=== PATIENT | male | born 1935 | race Caucasian/White ===

== ENCOUNTER 2016-07-12 13:56 | Emergency (ER) | payer MEDICARE ==
[~2016-07-12] VITALS: Ht 188 cm; Wt 100.0 kg
[~2016-07-12 13:56] MED LIST: ASCO500T8 PO; ASPI-496 PO; ATOR20TA PO; CALC-118 PO; CHOL2000 PO; DUTA0.5C PO; GLUC1TAB55 PO; IBUP200C PO; LACT1CAP43 PO; LEVE750T37 PO; MAGN300C PO; MULT-717 PO; OMEG1CAP57 PO; RABE20TA5 PO; RESV100C PO; TAMS-11 PO; UBID100C24 PO
[2016-07-12] MEDS ORDERED: SODIUM CHLORIDE 0.9% 1,000ML IVBOLUS ONE (15:30)
[2016-07-12] MEDS ORDERED: SODIUM CHLORIDE FLUSH 10ML SYR IVF ONE (15:30)
[2016-07-12 15:33] LABS: RAPID INFLUENZA A Negative (Negative); RAPID INFLUENZA B Negative (Negative)
[2016-07-12 15:39] LABS: HEMOGLOBIN 13.8 g/dL (13.7-18.0)
[2016-07-12 15:48] LABS: BLOOD UREA NITROGEN 16 mg/dL (7-18)
[2016-07-12 15:51] LABS: ASPARTATE AMINO TRANSFERASE 21 U/L (15-37)
[2016-07-12] MEDS ORDERED: LEVOFLOXACIN/PMX 500MG/100ML 100 ML IVPB ONE (16:00)
[2016-07-12] MEDS ORDERED: LEVOFLOXACIN/PMX 500MG/100ML 100 ML ONE (16:15)
[2016-07-12 18:20] VITALS: BP 116/93
== END 2016-07-12 18:22 | disposition home or self-care (01) ==
LOC: ED 17:10
DX: J15.9 Unspecified bacterial pneumonia (principal); K21.9 Gastro-esophageal reflux disease without esophagitis; E78.5 Hyperlipidemia, unspecified; N40.0 Benign prostatic hyperplasia without lower urinary tract symptoms; Z85.46 Personal history of malignant neoplasm of prostate
CPT/HCPCS: 36415; 71020; 80053; 85025; 87400; 93005; 96365; 96366; 99285; J1956; J7030

== ENCOUNTER → 2016-10-28 | Outpatient (CLI) | payer MEDICARE, OTHER | END | disposition home or self-care (01) | LOC: PETCFH 09:46 | PROVIDERS: ATTEND Internal Medicine Hematology & Oncology | DX: C43.9 Malignant melanoma of skin, unspecified (principal) | CPT/HCPCS: 78816; A9552 ==

== ENCOUNTER → 2016-12-30 | Outpatient (CLI) | payer MEDICARE ==
[~2016-12-30] MED LIST changes: +GADOBUTROL 10 MMOL/10 ML VIAL ONE; -IBUP200C PO; +IBUP200C5 PO; +RABE20TA18 PO; -RABE20TA5 PO
== END | disposition home or self-care (01) ==
LOC: CFH 07:57
PROVIDERS: ATTEND Radiology Radiation Oncology
DX: C79.31 Secondary malignant neoplasm of brain (principal); J32.0 Chronic maxillary sinusitis; Z85.820 Personal history of malignant melanoma of skin
CPT/HCPCS: 70553; A9585

== ENCOUNTER → 2017-01-05 | Outpatient (CLI) | payer MEDICARE ==
[~2017-01-05] MED LIST changes: -GADOBUTROL 10 MMOL/10 ML VIAL ONE
== END | disposition home or self-care (01) ==
LOC: PETCFH 10:14
PROVIDERS: ATTEND Urology
DX: M19.012 Primary osteoarthritis, left shoulder (principal); M19.011 Primary osteoarthritis, right shoulder; M17.0 Bilateral primary osteoarthritis of knee; M19.072 Primary osteoarthritis, left ankle and foot; M19.071 Primary osteoarthritis, right ankle and foot; C61 Malignant neoplasm of prostate
CPT/HCPCS: 78306; A9503

== ENCOUNTER → 2017-05-05 | Outpatient (CLI) | payer MEDICARE | LOC: ROC 11:12 | PROVIDERS: ATTEND Radiology Radiation Oncology | DX: C79.82 Secondary malignant neoplasm of genital organs (principal); C80.1 Malignant (primary) neoplasm, unspecified | CPT/HCPCS: 99213; G0463 ==

== ENCOUNTER → 2017-05-12 | Outpatient (CLI) | payer MEDICARE | END | disposition home or self-care (01) | LOC: PETCFH 08:36 | PROVIDERS: ATTEND Internal Medicine Hematology & Oncology | DX: R59.1 Generalized enlarged lymph nodes (principal); E86.0 Dehydration; C43.9 Malignant melanoma of skin, unspecified | CPT/HCPCS: 78816; A9552 ==

== ENCOUNTER → 2017-07-14 | Outpatient (CLI) | payer MEDICARE ==
[~2017-07-14] MED LIST changes: +GADOBUTROL 10 MMOL/10 ML PFS ONE
== END | disposition home or self-care (01) ==
LOC: CFH 09:22
PROVIDERS: ATTEND Radiology Radiation Oncology
DX: G93.89 Other specified disorders of brain (principal); C79.31 Secondary malignant neoplasm of brain; C43.9 Malignant melanoma of skin, unspecified
CPT/HCPCS: 70553; A9585

== ENCOUNTER → 2017-07-15 | Outpatient (CLI) | payer MEDICARE, OTHER ==
[~2017-07-15] MED LIST changes: -GADOBUTROL 10 MMOL/10 ML PFS ONE
== END | disposition home or self-care (01) ==
LOC: ROC 07:17
PROVIDERS: ATTEND Radiology Radiation Oncology
DX: Z08 Encounter for follow-up examination after completed treatment for malignant neoplasm (principal); C61 Malignant neoplasm of prostate; Z85.820 Personal history of malignant melanoma of skin; Z79.82 Long term (current) use of aspirin
CPT/HCPCS: 99213; G0463

== ENCOUNTER → 2017-08-02 | Outpatient (CLI) | payer MEDICARE | LOC: PETCFH 07:23 | PROVIDERS: ATTEND Internal Medicine Hematology & Oncology | DX: C43.9 Malignant melanoma of skin, unspecified (principal); R91.8 Other nonspecific abnormal finding of lung field | CPT/HCPCS: 78816; A9552 ==

== ENCOUNTER 2017-08-17 09:36 | Day surgery (SDC) | payer MEDICARE ==
[2017-08-17 10:44] VITALS: BP 158/90
[2017-08-17] MEDS ORDERED: FLUMAZENIL 0.1 MG/1 ML, 5ML ONE (11:04)
[2017-08-17] MEDS ORDERED: MIDAZOLAM 1 MG/ML, 5ML ONE (11:04)
[2017-08-17] MEDS ORDERED: FENTANYL PF 100 MCG/2ML ONE ×2 (11:04)
[2017-08-17] MEDS ORDERED: NALOXONE 1 MG/ML, 2ML ONE (11:04)
[2017-08-17] MEDS ORDERED: hydrALAzine 20 MG/ML, 1ML ONE (11:37)
== END 2017-08-17 14:50 ==
LOC: OUT 09:36
PROVIDERS: ATTEND Internal Medicine Hematology & Oncology
DX: C48.1 Malignant neoplasm of specified parts of peritoneum (principal)
CPT/HCPCS: 49180; 77012; 88305; 88341; 88342; 99156; J2250; J3010; 99157; G0461; J2310

== ENCOUNTER → 2018-01-21 | Outpatient (CLI) | payer MEDICARE ==
[~2018-01-21] MED LIST changes: +GADOBUTROL 10 MMOL/10 ML PFS ONE; +IBUP-1623 PO; -IBUP200C5 PO
== END | disposition home or self-care (01) ==
LOC: CFH 09:40
PROVIDERS: ATTEND Radiology Radiation Oncology
DX: C79.31 Secondary malignant neoplasm of brain (principal); C79.51 Secondary malignant neoplasm of bone
CPT/HCPCS: 70553; A9585

== ENCOUNTER → 2018-01-26 | Outpatient (CLI) | payer MEDICARE ==
[~2018-01-26] MED LIST changes: -GADOBUTROL 10 MMOL/10 ML PFS ONE
== END | disposition home or self-care (01) ==
LOC: ROC 09:59
PROVIDERS: ATTEND Radiology Radiation Oncology
DX: C61 Malignant neoplasm of prostate (principal)
CPT/HCPCS: 99213; G0463

== ENCOUNTER → 2018-01-26 | Outpatient (CLI) | payer MEDICARE | END | disposition home or self-care (01) | LOC: PETCFH 09:39 | PROVIDERS: ATTEND Internal Medicine Hematology & Oncology | DX: C78.7 Secondary malignant neoplasm of liver and intrahepatic bile duct (principal); R91.8 Other nonspecific abnormal finding of lung field; K80.20 Calculus of gallbladder without cholecystitis without obstruction | CPT/HCPCS: 78816; A9552 ==

== ENCOUNTER 2018-02-23 23:23 | Emergency (ER) | payer MEDICARE ==
[~2018-02-23] VITALS: Ht 188 cm; Wt 97.0 kg
[2018-02-23] MEDS ORDERED: PHENYLEPHRINE NASAL 1%, 15ML SPRAY ONE (23:24)
[2018-02-23 23:56] LABS: MEAN CORPUSCULAR HEMOGLOBIN 30.9 pg (27.5-34.5); MEAN CORPUSCULAR HGB CONC 33.6 g/dL (33.2-36.2); MEAN PLATELET VOLUME 8.2 fL (7.4-10.4); PLATELET COUNT 203 x10^3/uL (130-400); RED BLOOD COUNT 4.34 x10^6/uL (4.38-5.82)
[2018-02-24] LABS: INTERNATIONAL NORMALIZED RATIO 1.1 (0.93-1.1); PROTHROMBIN TIME 11.4 Seconds (9.6-11.5)
[2018-02-24 00:01] LABS: CALCIUM 8.6 mg/dL (8.5-10.1); CHLORIDE 102 mmol/L (98-107); CREATININE 0.74 mg/dL (0.7-1.3)
[2018-02-24 00:04] LABS: ANION GAP 12 mmol/L (5-15)
[2018-02-24 00:23] LABS: MD YES
[2018-02-24 00:26] LABS: BAND#(MANUAL) 1.76 x10^3/uL; BANDS%(MANUAL) 7 % (0-7); EOS% (MANUAL) 2 % (1-7); LYMPH#(MANUAL) 1.51 x10^3/uL (1-3.4); LYMPHS% (MANUAL) 6 % (22-44); METAMYELOCYTES% (MANUAL) 2 % (0-1); MONOS#(MANUAL) 2.27 x10^3/uL (0.3-2.7); MONOS% (MANUAL) 9 % (2-9); MYELOCYTES# (MANUAL) 0.25 x10^3/uL (0-0); MYELOCYTES% (MANUAL) 1 % (0-0); SEGS% (MANUAL) 73 % (42-75)
[2018-02-24 00:27] LABS: POLYCHROMASIA 1+; TOXIC GRAN 1+
[2018-02-24 00:28] LABS: <PLATELET ESTIMATE> ADEQUATE; <PLT MORPHOLOGY> NORMAL PLT MORPH
[2018-02-24 00:52] VITALS: BP 137/72
== END 2018-02-24 00:54 | disposition home or self-care (01) ==
LOC: ED 23:45
DX: R04.0 Epistaxis (principal); K21.9 Gastro-esophageal reflux disease without esophagitis; E78.5 Hyperlipidemia, unspecified; Z87.01 Personal history of pneumonia (recurrent); Z87.438 Personal history of other diseases of male genital organs
CPT/HCPCS: 30901; 36415; 80048; 82040; 85025; 85610; 86850; 86900; 99284

== ENCOUNTER → 2018-05-26 | Outpatient (CLI) | payer MEDICARE ==
[~2018-05-26] MED LIST changes: +OMNIPAQUE 350 MG/ML, 100ML BOTTLE ONE
== END | disposition home or self-care (01) ==
LOC: PETCFH 11:32
PROVIDERS: ATTEND Internal Medicine Hematology & Oncology
DX: M48.56XA Collapsed vertebra, not elsewhere classified, lumbar region, initial encounter for fracture (principal); C43.9 Malignant melanoma of skin, unspecified; C61 Malignant neoplasm of prostate
CPT/HCPCS: 71260; 74177; 78306; A9503; Q9967

== ENCOUNTER 2018-06-09 06:01 | Day surgery (SDC) | payer MEDICARE ==
[~2018-06-09] VITALS: Ht 185.4 cm; Wt 89.6 kg
[~2018-06-09 06:01] MED LIST changes: -OMNIPAQUE 350 MG/ML, 100ML BOTTLE ONE
[2018-06-09] MEDS ORDERED: LEVE500T53 PO (07:05)
[2018-06-09] MEDS ORDERED: SIMV10TA3 PO (07:05)
[2018-06-09] MEDS ORDERED: DEXA4TAB PO (07:05)
[2018-06-09 07:19] VITALS: BP 108/54
[2018-06-09] MEDS ORDERED: SODIUM CHLORIDE 0.9% 1,000 ML IV SCH (07:30)
[2018-06-09 07:41] LABS: INTERNATIONAL NORMALIZED RATIO 1.12 (0.93-1.1); PROTHROMBIN TIME 11.8 Seconds (9.6-11.5)
[2018-06-09] MEDS ORDERED: LIDOCAINE-MPF 1%, 5ML ONE (07:43)
[2018-06-09] MEDS ORDERED: FENTANYL PF 100 MCG/2ML ONE (08:11)
[2018-06-09] MEDS ORDERED: FLUMAZENIL 0.1 MG/1 ML, 5ML ONE (08:11)
[2018-06-09] MEDS ORDERED: NALOXONE 1 MG/ML, 2ML ONE (08:11)
[2018-06-09] MEDS ORDERED: MIDAZOLAM 1 MG/ML, 5ML ONE (08:11)
== END 2018-06-09 10:40 | disposition home or self-care (01) ==
LOC: OUT 06:01
PROVIDERS: ATTEND Internal Medicine Hematology & Oncology
DX: C61 Malignant neoplasm of prostate (principal); C78.7 Secondary malignant neoplasm of liver and intrahepatic bile duct; Z87.891 Personal history of nicotine dependence; Z72.89 Other problems related to lifestyle
CPT/HCPCS: 36415; 47000; 77012; 85610; 88307; 99156; J2250; J3010; J7030; 99157; J2310

== ENCOUNTER 2018-06-17 10:08 | Emergency (ER) | payer MEDICARE ==
[~2018-06-17] VITALS: Ht 185.4 cm; Wt 91.0 kg
[~2018-06-17 10:08] MED LIST changes: +DEXA4TAB PO; +LEVE500T53 PO; +SIMV10TA3 PO
--- NOTE | 2018-06-17 10:54 | NUR ---
TO ROOM 36
--- NOTE | 2018-06-17 11:00 | NUR ---
PT IS NOT IN ROOM, PT IN US AT THIS TIME PER WAGE CONCILIATOR.
[2018-06-17 11:35] VITALS: BP 146/78
--- NOTE | 2018-06-17 11:37 | NUR ---
PT TO ROOM: PT AT THIS TIME ARRIVES TO ED FOR LEFT CALF LEG PAIN. PT REPORTS HE STARTED DEVELOPING THIS PAIN A FEW DAYS AGO AND HAS ONLY INCREASED. PT HAS DECREASED MOBILITY AND USES A WALKER. PT CONNECTED TO ALL MONITORS AND CALL LIGHT IN REACH. PT GIVEN BLANKETS AND HEATER FOR COMFORT. AWAITING FURTHER ORDERS. PEDAL PULSES ARE INTACT ON BOTH SIDES.
[2018-06-17] MEDS ORDERED: SODIUM CHLORIDE FLUSH 10ML SYR IVF ONE (12:00)
[2018-06-17 12:02] LABS: MEAN CORPUSCULAR HEMOGLOBIN 30.3 pg (27.5-34.5); MEAN CORPUSCULAR HGB CONC 32.9 g/dL (33.2-36.2); MEAN PLATELET VOLUME 6.6 fL (7.4-10.4); PLATELET COUNT 261 x10^3/uL (130-400); RED BLOOD COUNT 4.27 x10^6/uL (4.38-5.82); RED CELL DISTRIBUTION WIDTH 17.9 % (9.4-14.8)
[2018-06-17 12:11] LABS: INTERNATIONAL NORMALIZED RATIO 1.5 (0.93-1.1); PROTHROMBIN TIME 15.7 Seconds (9.6-11.5)
[2018-06-17 12:12] LABS: ALANINE AMINOTRANSFERASE 43 U/L (12-78); ALBUMIN 2.9 g/dL (3.4-5.0); ANION GAP 10 mmol/L (5-15); CHLORIDE 100 mmol/L (98-107); CREATININE 0.96 mg/dL (0.7-1.3)
[2018-06-17 12:14] LABS: ALKALINE PHOSPHATASE 120 U/L (45-117); BILIRUBIN,TOTAL 1.4 mg/dL (0.2-1.0); TOTAL PROTEIN 6.2 g/dL (6.4-8.2)
[2018-06-17 12:34] LABS: BASOPHILS % (AUTO) 0 % (0-1); EOSINOPHILS # (AUTO) 0.01 x10^3/uL (0-0.4); EOSINOPHILS % (AUTO) 0 % (1-7); LYMPHOCYTES # (AUTO) 0.24 x10^3/uL (1-3.4); LYMPHOCYTES % (AUTO) 3 % (22-44); MD SCAN; MONOCYTES # (AUTO) 0.05 x10^3/uL (0.2-0.8); MONOCYTES % (AUTO) 1 % (2-9); NEUTROPHILS # (AUTO) 8.76 x10^3/uL (1.8-6.8); NEUTROPHILS % (AUTO) 97 % (42-75)
--- NOTE | 2018-06-17 13:05 | NUR ---
Patient/Caregiver given discharge instructions and they have confirmed that they understand the instructions. Patient ambulatory with steady gait.
--- NOTE | 2018-06-17 13:54 | NUR ---
PTS FRIEND TO SUPERVISOR CD AREA AT THIS TIME.
--- NOTE | 2018-06-17 14:10 | NUR ---
ASKED TO HAVE PT BE IN LOBBY INSTEAD WITH HER.
--- NOTE | 2018-06-18 00:28 | NUR ---
LAB CALLS WITH POSITIVE BLOOD CULTURES X 2 OF GRAM NEGATIVE RODS, DR REYNOSO AWARE AND NUPUR Gabriel RN CALLING PT TO PLEASE COME BACK IN. THESE CULTURES WERE DRAWN IN APPROX LAST 12 HOURS
[2018-06-22] MEDS ORDERED: CEFT2PIG2 IV (14:17)
[2018-06-22] MEDS ORDERED: FURO20TA3 PO (14:17)
== END 2018-06-17 14:13 | disposition home or self-care (01) ==
LOC: ED 13:05
DX: M79.662 Pain in left lower leg (principal); E78.5 Hyperlipidemia, unspecified; K21.9 Gastro-esophageal reflux disease without esophagitis; Z85.46 Personal history of malignant neoplasm of prostate
CPT/HCPCS: 36415; 80053; 83605; 85025; 85610; 85730; 87040; 87077; 87186; 99284

== ENCOUNTER 2018-06-29 13:26 | Inpatient (IN) | payer MEDICARE ==
[~2018-06-29] VITALS: Ht 188 cm; Wt 96.8 kg
[~2018-06-29 13:26] MED LIST changes: +CEFT2PIG2 IV; +FURO20TA3 PO
[2018-06-29] MEDS ORDERED: SODIUM CHLORIDE FLUSH 10ML SYR IVF ONE (14:00)
--- NOTE | 2018-06-29 14:00 | NUR ---
PT TO ROOM 16 W/ C/O BILAT SWELLING TO BLE AND INCREASING SWELLING AND REDNESS TO LLE. 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 PT STATES HE WENT TO SEE HIS PCP DR. FARIAS WHO STATES HE RECENTLY HAD BACTEREMIA AND WAS ADMITTED FOR SEPSIS AND WAS GIVEN IV ANTX. PT STATES HE IS CURRENTLY ON INFUSIONS. PT RESTING ON TRUMAN. BECCA. VSS. FAMILY AT BEDSIDE. WARM BLANKET PROVIDED.
--- NOTE | 2018-06-29 14:10 | NUR ---
LAB AT BEDSIDE.
--- NOTE | 2018-06-29 14:31 | NUR ---
ERP DR. MORA AT BEDSIDE.
[2018-06-29 14:32] LABS: BASOPHILS # (AUTO) 0.05 x10^3/uL (0-0.1); BASOPHILS % (AUTO) 1 % (0-1); EOSINOPHILS # (AUTO) 0.02 x10^3/uL (0-0.4); EOSINOPHILS % (AUTO) 0 % (1-7); LYMPHOCYTES # (AUTO) 0.64 x10^3/uL (1-3.4); LYMPHOCYTES % (AUTO) 8 % (22-44); MD NO; MEAN CORPUSCULAR HEMOGLOBIN 30.1 pg (27.5-34.5); MEAN CORPUSCULAR HGB CONC 33.2 g/dL (33.2-36.2); MEAN CORPUSCULAR VOLUME 90.6 fL (81-97); MEAN PLATELET VOLUME 6.9 fL (7.4-10.4); MONOCYTES # (AUTO) 0.63 x10^3/uL (0.2-0.8); MONOCYTES % (AUTO) 8 % (2-9); NEUTROPHILS # (AUTO) 6.56 x10^3/uL (1.8-6.8); NEUTROPHILS % (AUTO) 83 % (42-75); PLATELET COUNT 462 x10^3/uL (130-400); RED CELL DISTRIBUTION WIDTH 18.4 % (9.4-14.8)
[2018-06-29 14:36] LABS: ALANINE AMINOTRANSFERASE 41 U/L (12-78); ALBUMIN 2.4 g/dL (3.4-5.0); ANION GAP 8 mmol/L (5-15); CALCIUM 8.5 mg/dL (8.5-10.1); CHLORIDE 106 mmol/L (98-107)
--- NOTE | 2018-06-29 14:38 | NUR ---
SPOKE W/ INF[facility]ION [facility]ENTER. PT TAKES rocephin 2gm/daily over 30 min. STARTED BY KEISHA PT TO END INFUSION 07/02/18
[2018-06-29 14:40] LABS: ALKALINE PHOSPHATASE 162 U/L (45-117); BILIRUBIN,TOTAL 0.5 mg/dL (0.2-1.0); CREATININE 0.72 mg/dL (0.7-1.3); TOTAL PROTEIN 5.8 g/dL (6.4-8.2)
[2018-06-29] MEDS ORDERED: CEFTRIAXONE PMX 2GM/50ML 50 ML IV ONE (15:30)
[2018-06-29] MEDS ORDERED: CEFTRIAXONE PMX 2GM/50ML 50 ML ONE (15:33)
--- NOTE | 2018-06-29 15:47 | NUR ---
PT RESTING ON GURNEY. NADN. MILLER.
--- NOTE | 2018-06-29 16:22 | NUR ---
PT RESTING ON GURNEY. NADN. MILLER.
[2018-06-29] MEDS ORDERED: ACETAMINOPHEN 325 MG TABLET PO PRN (16:30)
[2018-06-29] MEDS ORDERED: FUROSEMIDE 40 MG/4 ML IV ONE (16:30)
[2018-06-29] MEDS ORDERED: hydrALAzine 20 MG/ML, 1ML IVPush PRN (16:30)
--- NOTE | 2018-06-29 16:36 | NUR ---
REPORT GIVEN TO CARLA ARMANDO RN. ALL QUESTIONS ANSWERED. AWAITING PT TRANSPORT.
[2018-06-29 16:56] VITALS: BP 158/83
[2018-06-29] MEDS ORDERED: ENOXAPARIN 40 MG/0.4 ML ONE (17:19)
[2018-06-29] MEDS: ENOXAPARIN 40 MG/0.4 ML SQ SCH (17:41)
[2018-06-29 18:50] VITALS: BP 134/72
[2018-06-29] MEDS: LEVETIRACETAM 500 MG TABLET PO SCH (20:27)
[2018-06-29] MEDS: DEXAMETHASONE 4 MG TABLET PO SCH (20:28)
[2018-06-29] MEDS: CALCIUM/VITAMIN D3 250-125 TABLET PO SCH (20:28)
[2018-06-29] MEDS: SIMVASTATIN 10 MG TABLET PO SCH (20:28)
[2018-06-30 01:09] VITALS: BP 153/71
[2018-06-30 04:40] LABS: ANION GAP 6 mmol/L (5-15); CALCIUM 8.4 mg/dL (8.5-10.1); CHLORIDE 105 mmol/L (98-107); CREATININE 0.79 mg/dL (0.7-1.3)
[2018-06-30 04:46] LABS: BASOPHILS # (AUTO) 0.01 x10^3/uL (0-0.1); BASOPHILS % (AUTO) 0 % (0-1); EOSINOPHILS % (AUTO) 0 % (1-7); LYMPHOCYTES # (AUTO) 0.53 x10^3/uL (1-3.4); LYMPHOCYTES % (AUTO) 9 % (22-44); MD NO; MEAN CORPUSCULAR HEMOGLOBIN 29.9 pg (27.5-34.5); MEAN CORPUSCULAR HGB CONC 32.9 g/dL (33.2-36.2); MEAN CORPUSCULAR VOLUME 90.9 fL (81-97); MEAN PLATELET VOLUME 6.8 fL (7.4-10.4); MONOCYTES # (AUTO) 0.13 x10^3/uL (0.2-0.8); MONOCYTES % (AUTO) 2 % (2-9); NEUTROPHILS # (AUTO) 5.01 x10^3/uL (1.8-6.8); NEUTROPHILS % (AUTO) 88 % (42-75); PLATELET COUNT 440 x10^3/uL (130-400); RED BLOOD COUNT 3.98 x10^6/uL (4.38-5.82)
[2018-06-30] MEDS: PANTOPROZOLE 40MG TABLET PO SCH (06:14)
[2018-06-30 07:10] VITALS: BP 153/67
[2018-06-30] MEDS: DUTASTERIDE 0.5 MG CAPSULE PO SCH (09:00)
[2018-06-30] MEDS ORDERED: TEMPLATE NON-FORMULARY MED. (Ubidecarenone (Coq-10) 200 MG) PO SCH (09:00)
[2018-06-30] MEDS ORDERED: TEMPLATE NON-FORMULARY MED. (Glucosamine/D3/Boswellia Serra** (Osteo Bi-Flex Caplet**) 1 T PO SCH (09:00)
[2018-06-30] MEDS: LEVETIRACETAM 500 MG TABLET PO SCH ×2 (11:20→20:54)
[2018-06-30] MEDS: TAMSULOSIN 0.4 MG CAP.ER.24H PO SCH (11:21)
[2018-06-30] MEDS: ASCORBIC ACID 500 MG TABLET PO SCH (11:21)
[2018-06-30] MEDS: MULTIVITAMINS/MINERALS TABLET PO SCH (11:21)
[2018-06-30] MEDS: CHOLECALCIFEROL 1,000 UNIT TABLET PO SCH (11:21)
[2018-06-30] MEDS: LACTOBACILLUS CHEW TABLET PO SCH (11:21)
[2018-06-30] MEDS: DEXAMETHASONE 4 MG TABLET PO SCH ×2 (11:21→20:54)
[2018-06-30] MEDS: CALCIUM/VITAMIN D3 250-125 TABLET PO SCH ×2 (11:21→20:54)
[2018-06-30 12:54] VITALS: BP 126/71
[2018-06-30] MEDS: CEFTRIAXONE PMX 2GM/50ML 50 ML IV SCH (17:00)
[2018-06-30] MEDS: ENOXAPARIN 40 MG/0.4 ML SQ SCH (17:01)
[2018-06-30 18:29] VITALS: BP 144/68
[2018-06-30] MEDS: SIMVASTATIN 10 MG TABLET PO SCH (20:54)
[2018-07-01 03:30] VITALS: BP 144/67
[2018-07-01] MEDS: PANTOPROZOLE 40MG TABLET PO SCH (05:34)
[2018-07-01 07:38] VITALS: BP 122/76
[2018-07-01] MEDS: DEXAMETHASONE 4 MG TABLET PO SCH ×2 (09:41→21:07)
[2018-07-01] MEDS: LEVETIRACETAM 500 MG TABLET PO SCH ×2 (09:41→21:07)
[2018-07-01] MEDS: CHOLECALCIFEROL 1,000 UNIT TABLET PO SCH (09:42)
[2018-07-01] MEDS: ASCORBIC ACID 500 MG TABLET PO SCH (09:42)
[2018-07-01] MEDS: DUTASTERIDE 0.5 MG CAPSULE PO SCH (09:42)
[2018-07-01] MEDS: LACTOBACILLUS CHEW TABLET PO SCH (09:42)
[2018-07-01] MEDS: CALCIUM/VITAMIN D3 250-125 TABLET PO SCH ×2 (09:42→21:07)
[2018-07-01] MEDS: MULTIVITAMINS/MINERALS TABLET PO SCH (09:42)
[2018-07-01] MEDS: TAMSULOSIN 0.4 MG CAP.ER.24H PO SCH (09:47)
[2018-07-01 13:03] VITALS: BP 133/70
[2018-07-01] MEDS: ENOXAPARIN 40 MG/0.4 ML SQ SCH (16:31)
[2018-07-01] MEDS: CEFTRIAXONE PMX 2GM/50ML 50 ML IV SCH (16:31)
[2018-07-01 19:03] VITALS: BP 145/70
[2018-07-01] MEDS: SIMVASTATIN 10 MG TABLET PO SCH (21:07)
[2018-07-02 01:30] VITALS: BP 137/68
[2018-07-02 04:40] LABS: BASOPHILS % (AUTO) 0 % (0-1); EOSINOPHILS # (AUTO) 0.17 x10^3/uL (0-0.4); EOSINOPHILS % (AUTO) 2 % (1-7); LYMPHOCYTES # (AUTO) 0.51 x10^3/uL (1-3.4); LYMPHOCYTES % (AUTO) 7 % (22-44); MD NO; MEAN CORPUSCULAR HEMOGLOBIN 30.6 pg (27.5-34.5); MEAN CORPUSCULAR VOLUME 90.1 fL (81-97); MEAN PLATELET VOLUME 6.8 fL (7.4-10.4); MONOCYTES # (AUTO) 0.29 x10^3/uL (0.2-0.8); MONOCYTES % (AUTO) 4 % (2-9); NEUTROPHILS # (AUTO) 6.35 x10^3/uL (1.8-6.8); NEUTROPHILS % (AUTO) 87 % (42-75); PLATELET COUNT 393 x10^3/uL (130-400); RED BLOOD COUNT 3.92 x10^6/uL (4.38-5.82); RED CELL DISTRIBUTION WIDTH 18.3 % (9.4-14.8)
[2018-07-02 04:46] LABS: ALANINE AMINOTRANSFERASE 42 U/L (12-78); ALBUMIN 2.4 g/dL (3.4-5.0); ANION GAP 7 mmol/L (5-15); CALCIUM 8.4 mg/dL (8.5-10.1); CHLORIDE 106 mmol/L (98-107); CREATININE 0.68 mg/dL (0.7-1.3)
[2018-07-02 04:48] LABS: ALKALINE PHOSPHATASE 142 U/L (45-117); BILIRUBIN,TOTAL 0.4 mg/dL (0.2-1.0); TOTAL PROTEIN 5.1 g/dL (6.4-8.2)
[2018-07-02] MEDS: PANTOPROZOLE 40MG TABLET PO SCH (06:00)
[2018-07-02] MEDS: PANTOPRAZOLE 20MG TABLET PO SCH (06:18)
[2018-07-02] MEDS ORDERED: MAGNESIUM SULFATE PMX 2GM/50ML 50 ML IV ONE (06:30)
[2018-07-02 06:58] VITALS: BP 146/69
[2018-07-02] MEDS: DUTASTERIDE 0.5 MG CAPSULE PO SCH (07:43)
[2018-07-02] MEDS: DEXAMETHASONE 4 MG TABLET PO SCH ×2 (07:43→20:39)
[2018-07-02] MEDS: TAMSULOSIN 0.4 MG CAP.ER.24H PO SCH (07:43)
[2018-07-02] MEDS: LEVETIRACETAM 500 MG TABLET PO SCH ×2 (07:44→20:38)
[2018-07-02] MEDS: LACTOBACILLUS CHEW TABLET PO SCH (07:44)
[2018-07-02] MEDS: MULTIVITAMINS/MINERALS TABLET PO SCH (07:44)
[2018-07-02] MEDS: CALCIUM/VITAMIN D3 250-125 TABLET PO SCH ×2 (07:44→20:38)
[2018-07-02] MEDS: ASCORBIC ACID 500 MG TABLET PO SCH (07:44)
[2018-07-02] MEDS: CHOLECALCIFEROL 1,000 UNIT TABLET PO SCH (07:44)
[2018-07-02 13:43] VITALS: BP 132/66
[2018-07-02] MEDS: CEFTRIAXONE PMX 2GM/50ML 50 ML IV SCH (16:06)
[2018-07-02] MEDS: ENOXAPARIN 40 MG/0.4 ML SQ SCH (17:18)
[2018-07-02 19:34] VITALS: BP 121/68
[2018-07-02] MEDS: SIMVASTATIN 10 MG TABLET PO SCH (20:38)
[2018-07-03 00:28] VITALS: BP 145/72
[2018-07-03] MEDS: PANTOPRAZOLE 20MG TABLET PO SCH (05:03)
[2018-07-03] MEDS ORDERED: PANTOPRAZOLE 20MG TABLET PO SCH (06:00)
[2018-07-03 07:12] VITALS: BP 130/81
[2018-07-03] MEDS: LACTOBACILLUS CHEW TABLET PO SCH (08:29)
[2018-07-03] MEDS: TAMSULOSIN 0.4 MG CAP.ER.24H PO SCH (08:29)
[2018-07-03] MEDS: DUTASTERIDE 0.5 MG CAPSULE PO SCH (08:29)
[2018-07-03] MEDS: LEVETIRACETAM 500 MG TABLET PO SCH ×2 (08:30→21:32)
[2018-07-03] MEDS: ASCORBIC ACID 500 MG TABLET PO SCH (08:30)
[2018-07-03] MEDS: CALCIUM/VITAMIN D3 250-125 TABLET PO SCH ×2 (08:30→21:32)
[2018-07-03] MEDS: CHOLECALCIFEROL 1,000 UNIT TABLET PO SCH (08:30)
[2018-07-03] MEDS: DEXAMETHASONE 4 MG TABLET PO SCH ×2 (08:30→21:32)
[2018-07-03] MEDS: MULTIVITAMINS/MINERALS TABLET PO SCH (08:30)
[2018-07-03 09:04] LABS: ALBUMIN 2.5 g/dL (3.4-5.0); ANION GAP 7 mmol/L (5-15); CALCIUM 8.4 mg/dL (8.5-10.1); CHLORIDE 107 mmol/L (98-107)
[2018-07-03 14:32] VITALS: BP 116/71
[2018-07-03] MEDS: CEFTRIAXONE PMX 2GM/50ML 50 ML IV SCH (16:11)
[2018-07-03] MEDS: ENOXAPARIN 40 MG/0.4 ML SQ SCH (17:51)
[2018-07-03 19:47] VITALS: BP 117/67
[2018-07-03] MEDS: SIMVASTATIN 10 MG TABLET PO SCH (21:32)
[2018-07-04 02:11] VITALS: BP 138/69
[2018-07-04] MEDS: PANTOPRAZOLE 20MG TABLET PO SCH (05:01)
[2018-07-04 05:24] LABS: ALBUMIN 2.4 g/dL (3.4-5.0); ANION GAP 6 mmol/L (5-15); CALCIUM 8.1 mg/dL (8.5-10.1); CHLORIDE 106 mmol/L (98-107); CREATININE 0.68 mg/dL (0.7-1.3)
[2018-07-04 05:25] LABS: BASOPHILS % (AUTO) 0 % (0-1); EOSINOPHILS % (AUTO) 0 % (1-7); LYMPHOCYTES # (AUTO) 0.55 x10^3/uL (1-3.4); LYMPHOCYTES % (AUTO) 8 % (22-44); MD NO; MEAN CORPUSCULAR HEMOGLOBIN 29.9 pg (27.5-34.5); MEAN CORPUSCULAR HGB CONC 32.9 g/dL (33.2-36.2); MEAN CORPUSCULAR VOLUME 90.9 fL (81-97); MEAN PLATELET VOLUME 6.9 fL (7.4-10.4); MONOCYTES # (AUTO) 0.31 x10^3/uL (0.2-0.8); MONOCYTES % (AUTO) 5 % (2-9); NEUTROPHILS # (AUTO) 6.09 x10^3/uL (1.8-6.8); NEUTROPHILS % (AUTO) 88 % (42-75); PLATELET COUNT 353 x10^3/uL (130-400); RED BLOOD COUNT 4.07 x10^6/uL (4.38-5.82); RED CELL DISTRIBUTION WIDTH 18.1 % (9.4-14.8)
[2018-07-04 07:02] VITALS: BP 152/73
[2018-07-04] MEDS: TAMSULOSIN 0.4 MG CAP.ER.24H PO SCH (09:16)
[2018-07-04] MEDS: DEXAMETHASONE 4 MG TABLET PO SCH (09:16)
[2018-07-04] MEDS: LACTOBACILLUS CHEW TABLET PO SCH (09:17)
[2018-07-04] MEDS: LEVETIRACETAM 500 MG TABLET PO SCH (09:17)
[2018-07-04] MEDS: DUTASTERIDE 0.5 MG CAPSULE PO SCH (09:17)
[2018-07-04] MEDS: MULTIVITAMINS/MINERALS TABLET PO SCH (09:17)
[2018-07-04] MEDS: CHOLECALCIFEROL 1,000 UNIT TABLET PO SCH (09:17)
[2018-07-04] MEDS: CALCIUM/VITAMIN D3 250-125 TABLET PO SCH (09:17)
[2018-07-04] MEDS: ASCORBIC ACID 500 MG TABLET PO SCH (09:17)
[2018-07-04 13:31] VITALS: BP 117/75
== END 2018-07-04 15:35 | DRG 843 ==
LOC: ED 16:24 → EDIP 16:36 → 3NW 16:48
PROVIDERS: ADMIT Internal Medicine; ATTEND Internal Medicine
DX: E88.09 Other disorders of plasma-protein metabolism, not elsewhere classified (principal); E43 Unspecified severe protein-calorie malnutrition; R78.81 Bacteremia; C78.7 Secondary malignant neoplasm of liver and intrahepatic bile duct; C79.51 Secondary malignant neoplasm of bone; C79.31 Secondary malignant neoplasm of brain; C78.00 Secondary malignant neoplasm of unspecified lung; R60.0 Localized edema; B96.20 Unspecified Escherichia coli [E. coli] as the cause of diseases classified elsewhere; D64.9 Anemia, unspecified; G40.909 Epilepsy, unspecified, not intractable, without status epilepticus; K21.9 Gastro-esophageal reflux disease without esophagitis; N40.0 Benign prostatic hyperplasia without lower urinary tract symptoms; Z85.46 Personal history of malignant neoplasm of prostate; Z87.891 Personal history of nicotine dependence; Z68.27 Body mass index [BMI] 27.0-27.9, adult
CPT/HCPCS: 36415; 80048; 80053; 82040; 83605; 83735; 83880; 84100; 84145; 85025; 87040; 96374; G0378; J0696; J1650; J1940; J3475